=== PATIENT | female | born 1975 | race Caucasian/White ===

== ENCOUNTER 2017-11-16 16:33 | Emergency (ER) | payer SELFPAY ==
[~2017-11-16] VITALS: Ht 165.1 cm; Wt 77.1 kg
[2017-11-16] MEDS ORDERED: ASPIRIN 81 MG CHEW TAB PO ONE (17:00)
--- NOTE | 2017-11-16 17:27 | Diagnostic Imaging Report ---
EXAM: XR CHEST 1 VIEW DATE: 11/16/2017 4:54 PM INDICATION: Pain COMPARISON: None FINDINGS: Lines and Tubes: None Heart and Mediastinum: No acute findings. Lungs and Pleura: No acute findings. Bones and Soft Tissues: No acute findings. IMPRESSION: 1. No acute cardiopulmonary findings. Signed by: Dr. John Morales MD on 11/16/2017 5:23 PM
[2017-11-16] MEDS ORDERED: SODIUM CHLORIDE 0.9% 1000ML 1,000 ML IV STA (17:32)
[2017-11-16 17:58] LABS: BASOPHILS # (AUTO) 0.1 (0.0-0.1); BASOPHILS % 0.6 % (0.0-1.0); EOSINOPHILS # (AUTO) 0.1 (0.0-0.4); EOSINOPHILS % 0.4 % (0.0-6.0); HEMATOCRIT 39.1 % (34.2-44.1); HEMOGLOBIN 13.6 g/dL (12.0-16.0); LYMPHOCYTES % 26.2 % (18.0-39.1); MEAN CORPUSCULAR HEMOGLOBIN 32.1 pg (28-32); MEAN CORPUSCULAR HGB CONC 34.8 g/dL (31-35); MEAN CORPUSCULAR VOLUME 92.2 fL (81-99); MONOCYTES # (AUTO) 0.8 (0.2-0.8); MONOCYTES % 6.7 % (4.4-11.3); NEUTROPHILS # (AUTO) 7.4 (2.1-6.9); NEUTROPHILS % 65.8 % (38.7-80.0); PLATELET COUNT 292 x10e3/uL (140-360); RED BLOOD COUNT 4.24 x10e6/uL (3.6-5.1); RED CELL DISTRIBUTION WIDTH 12.3 % (11.7-14.4)
[2017-11-16 18:16] LABS: ALANINE AMINOTRANSFERASE 18 IU/L (0-55); ALBUMIN 3.7 g/dL (3.5-5.0); ALBUMIN/GLOBULIN RATIO 1.1 (0.8-2.0); ALKALINE PHOSPHATASE 63 IU/L (40-150); ANION GAP 11.7 mmol/L (8-16); BLOOD UREA NITROGEN 11 mg/dL (7-26); BUN/CREATININE RATIO 15 (6-25); CARBON DIOXIDE 26 mmol/L (22-29); CHLORIDE 103 mmol/L (98-107); CREATINE KINASE 66 IU/L (29-168); CREATININE, SERUM 0.74 mg/dL (0.57-1.11); EST GLOMERULAR FILTRATION RATE > 60 ML/MIN (60-); GLUCOSE 94 mg/dL (74-118); POTASSIUM 3.7 mmol/L (3.5-5.1); SODIUM 137 mmol/L (136-145)
[2017-11-16 18:17] LABS: LIPASE 21 U/L (8-78); MAGNESIUM 1.6 MG/DL (1.3-2.1)
[2017-11-16 18:36] LABS: HCG,QUANTITATIVE < 1.20 mIU/mL (0-10); THYROID STIMULATING HORMONE 2.697 uIU/mL (0.350-4.940)
[2017-11-16] MEDS ORDERED: SODIUM CHLORIDE 0.9% 50ML 50 ML ONE (18:57)
[2017-11-16] MEDS ORDERED: IOPAMIDOL 370 MG/ML 200 ML INFUS..BTL INJ ONE (18:59)
[2017-11-16 19:07] LABS: BILIRUBIN,URINE NEGATIVE (NEGATIVE); CLARITY,URINE HAZY (CLEAR); COLOR,URINE YELLOW (YELLOW); KETONES,URINE NEGATIVE (NEGATIVE); LEUKOCYTE ESTERASE ,URINE NEGATIVE (NEGATIVE); NITRITE,URINE NEGATIVE (NEGATIVE); PROTEIN,URINE DIPSTICK NEGATIVE (NEGATIVE); URINE UROBILINOGEN 0.2 mg/dL (0.2 - 1)
[2017-11-16 19:23] LABS: BACTERIA,URINE FEW /HPF; EPITHELIAL CELLS,URINE MODERATE /LPF; RBC,URINE 0-5 /HPF (0-5); WBC,URINE (MAN) 0-5 /HPF (0-5)
--- NOTE | 2017-11-16 19:43 | Diagnostic Imaging Report ---
EXAM: CT CHEST W INDICATION: Chest pain, shortness of breath on exertion COMPARISON: None TECHNIQUE: Multidetector CT scanning of the chest was performed. Coronal and sagittal multiplanar reformations were obtained. PE protocol performed. IV Contrast: 100 cc Isovue-370 CTDIvol has been reviewed. It is below the limits set by the Radiation Protocol Committee (RPC). FINDINGS: LUNGS AND AIRWAYS: The trachea and major bronchi are unremarkable. No consolidations or edema. PLEURA: No effusions or pneumothorax. HEART, MEDIASTINUM, VESSELS: Normal. No evidence of a pulmonary embolism. UPPER ABDOMEN: Normal MUSCULOSKELETAL: No acute findings. Nonspecific 1 cm sclerotic density in the T1 vertebral body, likely a bone island. IMPRESSION: No evidence of a pulmonary embolus. Signed by: Dr. Osiris Kaur M.D. on 11/16/2017 7:39 PM
[2017-11-16 20:17] VITALS: BP 145/103
[2017-11-16] MEDS ORDERED: MOTRIN200 MG PO (20:17)
[2017-11-16] MEDS ORDERED: ASPIR 8181 MG PO (20:17)
[2017-11-16] MEDS ORDERED: TYLENOL # 31 EA PO (20:17)
== END 2017-11-16 20:27 | disposition home or self-care (01) ==
LOC: ER 16:33
DX: R07.89 Other chest pain (principal); R09.1 Pleurisy; R06.09 Other forms of dyspnea; I10 Essential (primary) hypertension; F17.210 Nicotine dependence, cigarettes, uncomplicated
CPT/HCPCS: 36415; 71045; 71260; 80053; 81001; 82550; 82553; 83690; 83735; 83880; 84443; 84484; 84702; 85025; 93005; 99284; J7030; Q9967

== ENCOUNTER 2018-04-05 16:28 | Emergency (ER) | payer SELFPAY ==
[~2018-04-05] VITALS: Ht 165.1 cm; Wt 77.1 kg
[~2018-04-05 16:28] MED LIST: ASPIR 8181 MG PO; MOTRIN200 MG PO; TYLENOL # 31 EA PO
[2018-04-05] MEDS ORDERED: KETOROLAC TROMETHAMINE 30 MG/ML VIAL IV NR (17:18)
[2018-04-05] MEDS ORDERED: MORPHINE SULFATE 2 MG/ML SYR IV NR (17:18)
[2018-04-05] MEDS ORDERED: ORPHENADRINE CITRATE 30 MG/ML VIAL INJ ONE (17:30)
[2018-04-05] MEDS ORDERED: METOPROLOL SUCC50 MG PO (18:28)
[2018-04-05] MEDS ORDERED: LOSARTAN-HCTZ1 EACH PO (18:28)
--- NOTE | 2018-04-05 19:51 | Diagnostic Imaging Report ---
EXAM: CHEST 2 VIEWS, PA and lateral INDICATION: Fall, cough COMPARISON: None FINDINGS: LINES/TUBES: None LUNGS: Patchy airspace opacity in the left lung base. PLEURA: No effusions or pneumothorax. HEART AND MEDIASTINUM: Normal size and contour. BONES AND SOFT TISSUES: No acute findings. IMPRESSION: Suspected left lower lobe pneumonia. Signed by: Dr. Osiris Kaur M.D. on 04/05/2018 7:48 PM
--- NOTE | 2018-04-05 19:52 | Diagnostic Imaging Report ---
EXAM: LUMBAR SPINE, AP, lateral, bilateral oblique and coned lateral view INDICATION: Fall, lower back pain COMPARISON: None FINDINGS: BONES: Five lumbar-type vertebral bodies. The alignment is within normal limits. No acute displaced fractures. No lytic or blastic lesions. DISCS: The disc-spaces are well-maintained. JOINTS: The facet joints and sacroiliac joints are unremarkable. SOFT TISSUES: Unremarkable IMPRESSION: No acute lumbar spine radiographic findings. Signed by: Dr. Osiris Kaur M.D. on 04/05/2018 7:49 PM
[2018-04-05] MEDS ORDERED: PREDNISONE 20 MG TAB PO ONE (20:30)
[2018-04-05] MEDS ORDERED: ALBUTEROL/IPRATROPIUM 3 ML NEB NEB ONE (20:30)
[2018-04-05] MEDS ORDERED: ROBAXIN-750750 MG PO (20:40)
[2018-04-05] MEDS ORDERED: TYLENOL WITH C1 EACH PO (20:40)
[2018-04-05] MEDS ORDERED: LEVAQUIN500 MG PO (20:40)
[2018-04-05] MEDS ORDERED: PREDNISONE20 MG PO (20:40)
[2018-04-05] MEDS ORDERED: ALBUTEROL0.63 MG/3 NEB (20:40)
== END 2018-04-05 22:10 | disposition home or self-care (01) ==
LOC: ER 16:28
DX: M54.5 Low back pain (principal); S39.012A Strain of muscle, fascia and tendon of lower back, initial encounter; J20.9 Acute bronchitis, unspecified; F17.210 Nicotine dependence, cigarettes, uncomplicated
CPT/HCPCS: 71046; 72110; 81025; 93005; 94640; 99284; J1885; J2270; J2360

== ENCOUNTER 2019-09-28 07:48 | Emergency (ER) | payer BC ==
[~2019-09-28] VITALS: Ht 165.1 cm; Wt 77.1 kg
[~2019-09-28 07:48] MED LIST changes: +ALBUTEROL0.63 MG/3 NEB; +LEVAQUIN500 MG PO; +LOSARTAN-HCTZ1 EACH PO; +METOPROLOL SUCC50 MG PO; +PREDNISONE20 MG PO; +ROBAXIN-750750 MG PO; +TYLENOL WITH C1 EACH PO
[2019-09-28] MEDS ORDERED: DILTIAZEM HCL 5 MG/ML 5 ML VIAL IV STA (08:17)
[2019-09-28] MEDS ORDERED: SODIUM CHLORIDE 0.9% 1000ML 1,000 ML IV STA (08:17)
[2019-09-28] MEDS ORDERED: ASPIRIN 81 MG CHEW TAB PO ONE (08:30)
[2019-09-28] MEDS ORDERED: DILTIAZEM HCL 60 MG TAB PO SCH (08:30)
[2019-09-28 09:07] LABS: HEMOGLOBIN 15.8 g/dL (12.0-16.0); RED BLOOD COUNT 5.07 x10e6/uL (3.6-5.1)
[2019-09-28 09:08] LABS: MEAN CORPUSCULAR HEMOGLOBIN 31.2 pg (28-32); MEAN CORPUSCULAR HGB CONC 34.3 g/dL (31-35); MEAN CORPUSCULAR VOLUME 90.7 fL (81-99); PLATELET COUNT 343 x10e3/uL (140-360); RED CELL DISTRIBUTION WIDTH 12.6 % (11.7-14.4)
[2019-09-28 09:09] LABS: NEUTROPHILS % 56.7 % (38.7-80.0)
[2019-09-28 09:10] LABS: BASOPHILS # (AUTO) 0.1 (0.0-0.1); BASOPHILS % 0.9 % (0.0-1.0); EOSINOPHILS # (AUTO) 0.1 (0.0-0.4); EOSINOPHILS % 1.3 % (0.0-6.0); LYMPHOCYTES # (AUTO) 2.5 (1.0-3.2); MONOCYTES # (AUTO) 0.6 (0.2-0.8); MONOCYTES % 7.8 % (4.4-11.3); NEUTROPHILS # (AUTO) 4.2 (2.1-6.9)
--- NOTE | 2019-09-28 09:17 | Diagnostic Imaging Report ---
EXAMINATION: CHEST SINGLE (NOT PORTABLE) INDICATION: Tachycardia COMPARISON: 04/05/2018 chest radiograph FINDINGS: LINES/TUBES:None LUNGS:The lungs are well-inflated. No focal consolidation or pulmonary edema. PLEURA:No pleural effusion or pneumothorax. MEDIASTINUM:The cardiomediastinal silhouette appears normal in size and shape. BONES/SOFT TISSUES:No acute osseous injury. ABDOMEN:No free air under the diaphragm. IMPRESSION: No focal pneumonia or pulmonary edema. Signed by: Hugo Upton MD on 09/28/2019 9:14 AM
[2019-09-28 09:20] LABS: INR 0.87; PARTIAL THROMBOPLASTIN TIME 28.3 seconds (23.8-35.5)
[2019-09-28 09:45] LABS: ALANINE AMINOTRANSFERASE 15 IU/L (0-55); ALBUMIN 4.4 g/dL (3.5-5.0); ALBUMIN/GLOBULIN RATIO 1.3 (0.8-2.0); ALKALINE PHOSPHATASE 58 IU/L (40-150); BLOOD UREA NITROGEN 9 mg/dL (7-26); BUN/CREATININE RATIO 12 (6-25); CALCIUM 9.6 mg/dL (8.4-10.2); CARBON DIOXIDE 23 mmol/L (22-29); CHLORIDE 105 mmol/L (98-107); CREATINE KINASE 44 IU/L (29-168); CREATININE, SERUM 0.76 mg/dL (0.57-1.11); EST GLOMERULAR FILTRATION RATE > 60 ML/MIN (60-); GLUCOSE 104 mg/dL (74-118); MAGNESIUM 1.8 MG/DL (1.3-2.1); SODIUM 139 mmol/L (136-145)
[2019-09-28 09:47] LABS: THYROID STIMULATING HORMONE 1.123 uIU/mL (0.350-4.940)
[2019-09-28 10:06] LABS: CLARITY,URINE CLEAR (CLEAR); COLOR,URINE YELLOW (YELLOW)
[2019-09-28 10:07] LABS: BACTERIA,URINE RARE /HPF; BILIRUBIN,URINE NEGATIVE (NEGATIVE); EPITHELIAL CELLS,URINE FEW /LPF; KETONES,URINE NEGATIVE (NEGATIVE); LEUKOCYTE ESTERASE ,URINE NEGATIVE (NEGATIVE); NITRITE,URINE NEGATIVE (NEGATIVE); PROTEIN,URINE DIPSTICK NEGATIVE (NEGATIVE); RBC,URINE 0-5 /HPF (0-5); URINE UROBILINOGEN 0.2 mg/dL (0.2 - 1); WBC,URINE (MAN) 0-5 /HPF (0-5)
[2019-09-28 10:23] LABS: PREGNANCY TEST, URINE NEGATIVE (NEGATIVE)
[2019-09-28 11:37] VITALS: BP 129/82
== END 2019-09-28 11:52 | disposition home or self-care (01) ==
LOC: ER 07:48
DX: R00.2 Palpitations (principal); R00.0 Tachycardia, unspecified; K08.89 Other specified disorders of teeth and supporting structures
CPT/HCPCS: 36415; 71045; 80053; 81001; 81025; 82550; 82553; 83735; 84443; 84484; 85025; 85379; 85610; 85730; 87086; 93005; 99284; J7030